=== PATIENT | male | born 1955 | race Caucasian/White ===

== ENCOUNTER 2019-08-20 14:42 | Emergency (ER) | payer BC ==
[~2019-08-20] VITALS: Ht 172.7 cm; Wt 106.8 kg
[~2019-08-20 14:42] MED LIST: FISH OIL1 IU PO
[2019-08-20 14:48] VITALS: TEMP 97.7
[2019-08-20] MEDS ORDERED: ZOVIRAX800 MG PO (15:09)
[2019-08-20] MEDS ORDERED: PREDNISONE20 MG PO (15:09)
[2019-08-20 15:30] VITALS: BP 131/82; PULSE 69
== END 2019-08-20 15:30 | disposition home or self-care (01) ==
LOC: COL.ER 14:42
DX: G51.0 Bell's palsy (principal); Z79.52 Long term (current) use of systemic steroids
CPT/HCPCS: J7512